=== PATIENT | female | born 2000 | race Caucasian/White ===

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

== ENCOUNTER 2019-02-05 04:32 | Emergency (ER) | payer OTHER ==
[~2019-02-05] VITALS: Ht 162.6 cm; Wt 75.8 kg
[~2019-02-05 04:32] MED LIST changes: +BACTRIM DS TAB1 EACH PO; +PYRIDIUM200 MG PO; +TRAZODONE HCL50 MG
[2019-02-05] MEDS ORDERED: ZOLOFT25 MG PO (04:41)
[2019-02-05 05:24] LABS: URINE BILIRUBIN NEGATIVE (Negative); URINE BLOOD NEGATIVE (Negative); URINE CLARITY CLEAR; URINE COLOR YELLOW; URINE GLUCOSE-RANDOM NEGATIVE (Negative); URINE KETONES NEGATIVE (Negative); URINE PROTEIN NEGATIVE (Negative); URINE UROBILINOGEN 0.2 E.U./dl (0.2-1.0)
[2019-02-05 05:25] LABS: URINE LEUKOCYTES-REFLEX 2+ (Negative); URINE NITRITE-REFLEX POSITIVE (Negative)
[2019-02-05 05:39] LABS: BACTERIA-REFLEX >30 Many /HPF (None Seen); CASTS None Seen /LPF (None Seen); CRYSTALS None Seen /LPF (None Seen); MUCUS 0-3 Light strn/LPF (None Seen); SQUAMOUS >10 Many /LPF (0-3); URINE RBC 0-2 Rare /HPF (0-2); URINE WBC-REFLEX 6-15 Few /HPF (0-5)
[2019-02-05] MEDS ORDERED: LEVAQUIN 500 M500 M1 PO (05:46)
[2019-02-05] MEDS ORDERED: PREDNISONE50 MG PO (05:46)
[2019-02-05] MEDS ORDERED: PROAIR HFA8.5 GM INH (05:46)
[2019-02-05 06:00] VITALS: BP 130/76
== END 2019-02-05 06:00 | disposition home or self-care (01) ==
LOC: M.ERS 04:32
PROVIDERS: Emergency Medicine
DX: J40 Bronchitis, not specified as acute or chronic (principal); N39.0 Urinary tract infection, site not specified; F41.9 Anxiety disorder, unspecified; K21.9 Gastro-esophageal reflux disease without esophagitis; F31.9 Bipolar disorder, unspecified

== ENCOUNTER 2019-04-24 23:40 | Emergency (ER) | payer OTHER ==
[~2019-04-24] VITALS: Ht 162.6 cm; Wt 79.4 kg
[~2019-04-24 23:40] MED LIST changes: +LEVAQUIN 500 M500 M1 PO; +PREDNISONE50 MG PO; +PROAIR HFA8.5 GM INH; +ZOLOFT25 MG PO
[2019-04-24] MEDS ORDERED: MACROBID 100 M100 MG PO (23:51)
[2019-04-24] MEDS ORDERED: PHENERGAN 25 MG25 M1 PO (23:51)
[2019-04-25 00:44] LABS: URINE BILIRUBIN NEGATIVE (Negative); URINE BLOOD NEGATIVE (Negative); URINE CLARITY CLEAR; URINE COLOR YELLOW; URINE GLUCOSE-RANDOM NEGATIVE (Negative); URINE KETONES 1+ (Negative); URINE LEUKOCYTES-REFLEX TRACE (Negative); URINE PROTEIN TRACE (Negative); URINE SPECIFIC GRAVITY 1.025 (1.005-1.030)
[2019-04-25 00:45] LABS: URINE NITRITE-REFLEX POSITIVE (Negative)
[2019-04-25 01:08] LABS: CASTS None Seen /LPF (None Seen); SQUAMOUS >10 Many /LPF (0-3)
[2019-04-25 01:09] LABS: BACTERIA-REFLEX >30 Many /HPF (None Seen); CALCIUM OXALATE 0-3 Few /LPF (None Seen); URINE RBC 0-2 Rare /HPF (0-2); URINE WBC-REFLEX 6-15 Few /HPF (0-5)
[2019-04-25 01:19] VITALS: BP 106/60
[2019-04-25] MEDS ORDERED: KEFLEX500 M1 PO (21:45)
== END 2019-04-25 01:21 | disposition home or self-care (01) ==
LOC: M.ERS 23:40
PROVIDERS: Emergency Medicine
DX: O23.41 Unspecified infection of urinary tract in pregnancy, first trimester (principal); O99.611 Diseases of the digestive system complicating pregnancy, first trimester; O99.341 Other mental disorders complicating pregnancy, first trimester; Z3A.01 Less than 8 weeks gestation of pregnancy; Z91.018 Allergy to other foods

== ENCOUNTER 2019-04-25 18:09 | Emergency (ER) | payer OTHER ==
[~2019-04-25] VITALS: Ht 162.6 cm; Wt 79.4 kg
[~2019-04-25 18:09] MED LIST changes: +MACROBID 100 M100 MG PO; +PHENERGAN 25 MG25 M1 PO
[2019-04-25 18:55] LABS: ABSOLUTE LYMPHOCYTES 1.8 thou/uL (0.8-5.3); ABSOLUTE MONOCYTES 0.6 thou/uL (0.0-1.2); ABSOLUTE NEUTROPHILS 8.9 thou/uL (1.6-8.1); BASOPHILS 0.4 %; EOSINOPHILS 0.1 %; HEMATOCRIT 35.5 % (37.0-47.0); HEMOGLOBIN 11.8 gm/dL (12.0-15.0); LYMPHOCYTES 15.5 %; MCH 27.6 pg (26.0-34.0); MCHC 33.3 g/dL (28.0-37.0); MCV 82.8 fL (80.0-100.0); MONOCYTES 5.7 %; NUCLEATED RBCS 0 /100WBC; PLATELET COUNT* 339 thou/uL (150-400); POLYS 78.3 %; RBC 4.29 mil/uL (4.20-5.00); RDW-CV 15.7 % (10.5-14.5); WBC 11.3 thou/uL (4.0-11.0)
[2019-04-25 18:58] LABS: CALCIUM 9.1 mg/dL (8.5-10.1); CREATININE 0.9 mg/dL (0.6-1.3)
[2019-04-25 19:08] LABS: ALBUMIN 3.9 g/dL (3.4-5.0); TOTAL BILIRUBIN 0.3 mg/dL (<0.1-1.0); TOTAL PROTEIN 7.6 g/dL (6.4-8.2)
[2019-04-25 19:09] LABS: POTASSIUM 3.3 mmol/L (3.5-5.1)
[2019-04-25 19:24] LABS: URINE BILIRUBIN NEGATIVE (Negative); URINE BLOOD NEGATIVE (Negative); URINE CLARITY SL CLOUDY; URINE COLOR YELLOW; URINE GLUCOSE-RANDOM NEGATIVE (Negative); URINE KETONES NEGATIVE (Negative); URINE NITRITE-REFLEX NEGATIVE (Negative); URINE PROTEIN NEGATIVE (Negative); URINE SPECIFIC GRAVITY <= 1.005 (1.005-1.030)
[2019-04-25 19:25] LABS: URINE LEUKOCYTES-REFLEX 2+ (Negative)
[2019-04-25 19:30] LABS: SQUAMOUS >10 Many /LPF (0-3)
[2019-04-25 19:31] LABS: BACTERIA-REFLEX >30 Many /HPF (None Seen); MUCUS >6 Heavy strn/LPF (None Seen); URINE RBC 0-2 Rare /HPF (0-2); URINE WBC-REFLEX 6-15 Few /HPF (0-5)
[2019-04-25 19:33] LABS: CASTS None Seen /LPF (None Seen); CRYSTALS None Seen /LPF (None Seen)
[2019-04-25] MEDS ORDERED: KEFLEX500 M1 PO (21:45)
[2019-04-25 21:56] VITALS: BP 92/41
== END 2019-04-25 21:56 | disposition home or self-care (01) ==
LOC: M.ERS 18:09
PROVIDERS: Emergency Medicine Emergency Medical Services
DX: N39.0 Urinary tract infection, site not specified (principal); F31.9 Bipolar disorder, unspecified; F41.9 Anxiety disorder, unspecified; K21.9 Gastro-esophageal reflux disease without esophagitis; F17.210 Nicotine dependence, cigarettes, uncomplicated; Z91.018 Allergy to other foods

== ENCOUNTER 2019-06-28 10:08 | Emergency (ER) | payer OTHER ==
[~2019-06-28] VITALS: Ht 165.1 cm; Wt 59.9 kg
[~2019-06-28 10:08] MED LIST changes: +KEFLEX500 M1 PO; +ONDANSETRON ODT4 MG PO; +SERTRALINE HCL50 MG PO; +TYLENOL WITH CO1 TA1 PO; +ZOFRAN4 MG PO
[2019-06-28] MEDS ORDERED: ANTIACID (10:24)
[2019-06-28] MEDS ORDERED: PROBIOTIC1 EAC7 PO (10:24)
[2019-06-28 10:46] LABS: ICTOTEST (BILI CONFIRMATORY) Negative (Negative); URINE BILIRUBIN 1+ (Negative); URINE BLOOD NEGATIVE (Negative); URINE CLARITY SL CLOUDY; URINE COLOR DARK YELLOW; URINE GLUCOSE-RANDOM NEGATIVE (Negative); URINE KETONES 1+ (Negative); URINE LEUKOCYTES-REFLEX NEGATIVE (Negative); URINE NITRITE-REFLEX NEGATIVE (Negative); URINE PROTEIN NEGATIVE (Negative); URINE SPECIFIC GRAVITY >= 1.030 (1.005-1.030); URINE UROBILINOGEN 0.2 E.U./dl (0.2-1.0)
[2019-06-28 10:48] LABS: ABSOLUTE BASOPHILS 0.1 thou/uL (0.0-0.2); ABSOLUTE EOSINOPHILS 0.1 thou/uL (0.0-0.7); ABSOLUTE LYMPHOCYTES 1.3 thou/uL (0.8-5.3); ABSOLUTE MONOCYTES 0.3 thou/uL (0.0-1.2); ABSOLUTE NEUTROPHILS 4.6 thou/uL (1.6-8.1); BASOPHILS 0.9 %; EOSINOPHILS 1.1 %; HEMATOCRIT 31.7 % (37.0-47.0); LYMPHOCYTES 20.3 %; MCH 29.5 pg (26.0-34.0); MCHC 34.9 g/dL (28.0-37.0); MCV 84.7 fL (80.0-100.0); MONOCYTES 5.2 %; MPV 8.8 fl. (7.2-11.1); NUCLEATED RBCS 0 /100WBC; PLATELET COUNT* 249 thou/uL (150-400); POLYS 72.5 %; RBC 3.74 mil/uL (4.20-5.00); RDW-CV 14.5 % (10.5-14.5); WBC 6.3 thou/uL (4.0-11.0)
[2019-06-28 10:54] LABS: CALCIUM 8.6 mg/dL (8.5-10.1); CREATININE 0.7 mg/dL (0.6-1.3); POTASSIUM 3.7 mmol/L (3.5-5.1)
[2019-06-28 10:59] LABS: SQUAMOUS >10 Many /LPF (0-3)
[2019-06-28 10:59] LABS: ALBUMIN 3.5 g/dL (3.4-5.0); TOTAL BILIRUBIN 0.4 mg/dL (<0.1-1.0); TOTAL PROTEIN 7.3 g/dL (6.4-8.2)
[2019-06-28 11:00] LABS: CASTS None Seen /LPF (None Seen); MUCUS >6 Heavy strn/LPF (None Seen); URINE RBC 0-2 Rare /HPF (0-2); URINE WBC-REFLEX 0-5 Rare /HPF (0-5)
[2019-06-28 11:01] LABS: CRYSTALS None Seen /LPF (None Seen)
[2019-06-28 12:01] VITALS: BP 118/75
== END 2019-06-28 12:01 | disposition home or self-care (01) ==
LOC: M.ERS 10:08
PROVIDERS: Nurse Practitioner Family
DX: O21.8 Other vomiting complicating pregnancy (principal); O99.612 Diseases of the digestive system complicating pregnancy, second trimester; Z3A.17 17 weeks gestation of pregnancy; Z91.018 Allergy to other foods

== ENCOUNTER 2020-06-01 14:23 | Emergency (ER) | payer OTHER, MEDICAID ==
[~2020-06-01] VITALS: Ht 165.1 cm; Wt 86.2 kg
[~2020-06-01 14:23] MED LIST changes: +ANTIACID; +PROBIOTIC1 EAC7 PO
[2020-06-01] MEDS ORDERED: PROAIR HFA8.5 GM INH (14:30)
[2020-06-01] MEDS ORDERED: IBUPROFEN 800800 M1 PO (16:21)
[2020-06-01] MEDS ORDERED: FLEXERIL PO (16:21)
[2020-06-01 16:40] VITALS: BP 107/47
== END 2020-06-01 16:41 | disposition home or self-care (01) ==
LOC: M.ERS 14:23
DX: M25.551 Pain in right hip (principal); F12.90 Cannabis use, unspecified, uncomplicated; K21.9 Gastro-esophageal reflux disease without esophagitis; Z79.899 Other long term (current) drug therapy; Z91.018 Allergy to other foods